=== PATIENT | male | born 1975 | race Two or more races ===

== ENCOUNTER 2021-03-20 15:20 | Observation (INO) | payer OTHER ==
[~2021-03-20] VITALS: Ht 182.9 cm; Wt 131.7 kg
[2021-03-20 16:05] VITALS: BP 143/86
[2021-03-20] MEDS ORDERED: ZOLPIDEM 5 MG TABLET. PO PRN (16:45)
[2021-03-20] MEDS ORDERED: ACETAMINOPHEN 325 MG TABLET PO PRN (16:45)
[2021-03-20] MEDS ORDERED: NITROGLYCERIN SUBLINGUAL 0.4 MG BOTTLE OF 25. SL PRN (16:45)
[2021-03-20] MEDS ORDERED: MAG HYDROX/AL HYDROX/SIMETH 30 ML ORAL.SUSP PO PRN (16:45)
--- NOTE | 2021-03-20 17:23 | EKG ---
[address] [address] Test Date: 2021-03-20 Test Time: 17:15:53 Pat Name: NADJA BAEZ Department: Room: 121 A Gender: M Hospital Account Manager: : 1975 Requested By: JOEL DODD Order Number: [id number] Reading MD: Measurements Intervals [place] Rate: 68 P: 41 ME: 160 QRS: -13 QRSD: 98 T: -1 QT: 392 QTc: 422 Interpretive Statements SINUS RHYTHM LEFTWARD AXIS NO SPECIFIC ECG ABNORMALITIES RI6.01 No previous ECG available for comparison
[2021-03-20 17:30] LABS: BASO % 1 % (0-3); EOS # 0.1 x10^3/uL (0.0-0.7); EOS % 2 % (0-3); HEMATOCRIT 43.5 % (39.0-53.0); HEMOGLOBIN 14.4 g/dL (13.0-17.5); LYMPH # 1.7 x10^3/uL (1.0-4.8); LYMPH % 23 % (24-48); MEAN CORPUSCULAR HEMOGLOBIN 29 pg (25-35); MEAN CORPUSCULAR HGB CONC 33 g/dL (31-37); MEAN CORPUSCULAR VOLUME 88 fL (79-100); MONO # 0.6 x10^3/uL (0.0-1.1); MONO % 8 % (0-9); NEUT # 4.8 x10^3uL (1.8-7.7); NEUT % 66 % (31-73); PLATELET COUNT 218 x10^3/uL (140-400); RED BLOOD COUNT 4.92 x10^6/uL (4.30-5.70); RED CELL DISTRIBUTION WIDTH 14.9 % (11.5-14.5); WHITE BLOOD COUNT 7.2 x10^3/uL (4.0-11.0)
[2021-03-20 17:53] LABS: ALBUMIN 3.3 g/dL (3.4-5.0); ALBUMIN/GLOBULIN RATIO 0.8 (1.0-1.7); CALCIUM 8.6 mg/dL (8.5-10.1); CREATININE 1.2 mg/dL (0.7-1.3); GFR 64.9; POTASSIUM 3.9 mmol/L (3.5-5.1); TOTAL BILIRUBIN 0.2 mg/dL (0.2-1.0); TOTAL PROTEIN 7.3 g/dL (6.4-8.2)
[2021-03-20] MEDS: IV 1/2 NORMAL SALINE 1,000 ML IV SCH (18:14)
[2021-03-20] MEDS ORDERED: PANT40TA6 PO (19:13)
--- NOTE | 2021-03-20 19:38 | RAD ---
EXAMINATION: Chest radiograph. VIEWS: 2 views COMPARISON: None INDICATION:46 years, Male, chest pain. FINDINGS: Normal cardiomediastinal silhouette. No focal consolidation. No pleural effusion or pneumothorax. No acute osseous process. IMPRESSION: No acute cardiopulmonary process. Electronically signed by: Yumiko Yip MD (03/20/2021 7:36 PM) [facility]
[2021-03-20 19:48] VITALS: BP 130/70
[2021-03-20 23:50] VITALS: BP 130/77
[2021-03-21] MEDS: IV 1/2 NORMAL SALINE 1,000 ML IV SCH (02:50)
[2021-03-21 06:07] VITALS: BP 117/71
[2021-03-21] MEDS ORDERED: PANTOPRAZOLE 40 MG TABLET. PO SCH ×2 (07:30)
[2021-03-21 10:47] VITALS: BP 162/88
[2021-03-21] MEDS ORDERED: NITR0.4T24 SL (12:02)
[2021-03-21] MEDS ORDERED: ASPI-889 PO (12:02)
--- NOTE | 2021-03-21 13:35 | NUR ---
Discharge note Patient and spouse read discharge instructions, all questions answered in full. Patient given discharge packet. Invasive line discontinued without difficulty. Patient ambulated with spouse out of building.
--- NOTE | 2021-03-21 21:10 | DS ---
DATE OF DISCHARGE: 03/21/2021 FINAL DIAGNOSIS: Had a chest pain, probable angina. The patient will be discharged as indicated for followup with Cardiology. KALEIGH/GRACE DR: Duc TID: [id number]
--- NOTE | 2021-03-21 21:10 | DS ---
DATE OF DISCHARGE: 03/21/2021 HOSPITAL COURSE: A 46-year-old male who has been having off and on chest pain in his left upper chest wall for the last six months. Nothing seems to make it better or worse. The patient has noted it with activity. We will go ahead, he was admitted to the hospital for rule out [place] protocol. His CBC was perfectly normal. Chemistries showed cardiac enzymes were all within range. Sodium, potassium, 143, 3.9, BUN and creatinine 15 and 1.2. Liver enzymes were normal. D-dimer was normal. The patient's EKG in the hospital showed sinus rhythm with some leftward axis deviation, otherwise unremarkable there. The patient was discharged home, did not want to wait for the electro optics engineer to see him. He will be discharged home and scheduled for a stress test as an outpatient. KATHIA DR: Duc TID: [id number]
[2021-03-22] MEDS ORDERED: PANTOPRAZOLE 40 MG TABLET. PO SCH (07:00)
--- NOTE | 2021-03-24 20:15 | DS ---
DATE OF DISCHARGE: 03/21/2021 HOSPITAL COURSE: A 46-year-old gentleman has been having off and on pain for the last several months, sometimes at rest. The patient has some risk factors of obesity and family history of heart disease. As a result of this, the patient was admitted to the hospital for rule out [place] protocol. His past medical history includes sleep apnea ____ CPAP, gastrointestinal disorders. Vaccinations are up to date. He has no known allergies. The patient otherwise made good progress. Cardiac enzymes were negative. Cardiology had been consulted, but the patient wanted to be discharged before they were able to see him. Otherwise, outside of moderate protein malnutrition, the patient's cardiac enzymes were unremarkable and the patient's electrocardiogram here anyway demonstrated a sinus rhythm. IMPRESSION: Chest pain, unknown etiology, possible angina. We will go ahead and continue to monitor the patient accordingly. The patient will be followed up as an outpatient and make further evaluation on him as indicated. BRITTANY DR: Duc TID: [id number]
== END 2021-03-21 13:14 | disposition home or self-care (01) ==
LOC: INTOOBSV 15:43 → 1 SOUTH 15:43
PROVIDERS: ADMIT Family Medicine; ATTEND Family Medicine
DX: R07.89 Other chest pain (principal); Z82.49 Family history of ischemic heart disease and other diseases of the circulatory system; Z79.899 Other long term (current) drug therapy
CPT/HCPCS: 36415; 71046; 80053; 80061; 82550; 84484; 85025; 85379; 93005; 96360; 96361; G0378; G0379; J7030

== ENCOUNTER 2021-08-01 19:26 | Emergency (ER) | payer OTHER ==
[~2021-08-01] VITALS: Ht 182.9 cm; Wt 114.4 kg
[~2021-08-01 19:26] MED LIST: ASPI-889 PO; NITR0.4T24 SL; PANT40TA6 PO
[2021-08-01 19:43] VITALS: BP 134/78
--- NOTE | 2021-08-01 19:49 | PHYS DOC ---
Adult General Chief Complaint Chief Complaint: ALLERGIC REACTION HPI HPI Patient is an otherwise healthy 46-year-old male who presents with concern for allergic reaction. States he got some new clothes from [employer], and about 20 minutes after trying them on started having some eye redness and itching, throat itching and hives on his back and abdomen. Denies any headache, pain or trouble swallowing, swollen lips or tongue, chest pain, shortness of breath, wheeze, abdominal pain, nausea, vomiting, diarrhea or lightheadedness. States he is able to sit, stand and walk without issue. States that he thinks symptoms are a little better than when they first started about an hour and a half ago. States he is not aware of any allergies outside of a possible shellfish allergy. Review of Systems Review of Systems Review of systems otherwise unremarkable except noted in HPI Allergies Allergies Allergies Coded Allergies Type Severity Reaction Last Updated Verified No Known Drug Allergies 03/20/21 No Physical Exam Physical Exam Constitutional: Well developed, well nourished, no acute distress, non-toxic appearance. [] HENT: Normocephalic, atraumatic, bilateral external ears normal, oropharynx moist, no oropharyngeal erythema or edema, no oral exudates, nose normal. [] Eyes: conjunctiva normal, no discharge. [] Neck: Normal range of motion, no tenderness, supple, no stridor. [] Cardiovascular:Heart rate regular rhythm, no murmur [] Lungs & Thorax: Bilateral breath sounds clear to auscultation [] Abdomen: Bowel sounds normal, soft, no tenderness, no masses, no pulsatile masses. [] Skin: Warm, dry, scant/minimal hives/urticaria on the back and abdomen Back: No tenderness, no CVA tenderness. [] Extremities: No tenderness, no cyanosis, no clubbing, ROM intact, no edema. [] Neurologic: Alert and oriented X 3, normal motor function, normal sensory function, no focal deficits noted. [] Psychologic: Affect normal, judgement normal, mood normal. [] EKG EKG [] Radiology/Procedures Radiology/Procedures [] Heart Score C/O Chest Pain: No Risk Factors: Risk Factors: DM, Current or recent (<one month) smoker, HTN, HLP, family history of CAD, obesity. Risk Scores: Risk Factors: DM, Current or recent (<one month) smoker, HTN, HLP, family history of CAD, obesity. Course & Med Decision Making Course & Med Decision Making Patient is a 46-year-old male who presents with concern for allergic reaction and hives Vital signs notable for tachycardia initially which resolved in the ED. Physical exam noted above. Given steroids and Pepcid. Patient took 50 mg of Benadryl just before coming to the ED. Observed in the emergency department until symptoms improved/resolved Discussed all findings with patient. Advised to follow-up as soon as possible with his primary care physician to discuss his ED visit. Advised to discard the new close that may be responsible for this reaction. Gave return precautions to the ED. Family grateful, verbalized understanding and agree with plan of discharge. [] Dragon Disclaimer Dragon Disclaimer This electronic medical record was generated, in whole or in part, using a voice recognition dictation system. Departure Departure: Impression: Primary Impression: Allergic reaction Disposition: HOME / SELF CARE / HOMELESS Condition: GOOD Referrals: JOEL DODD MD (PCP) Patient Instructions: Allergies, Generic, Allergy Skin Testing Additional Instructions: Thank you for coming into the emergency department tonight and allowing us to take care of you. Please read the attached information carefully to go back over some of the things we discussed. Please stay away from anything that you think may have triggered this such as the new clothes that she received. Please call your primary care physician to see if you can update him on your ED visit and set up a follow-up as soon as you can to discuss further evaluation and treatment. Please come back with new or concerning symptoms as we discussed JOSE ELIAS NEGRON MD Aug 01, 2021 19:49
[2021-08-01] MEDS ORDERED: FAMOTIDINE 20 MG TABLET PO ONE (20:00)
[2021-08-01] MEDS ORDERED: DEXAMETHASONE 4 MG TABLET PO ONE (20:00)
== END 2021-08-01 20:18 | disposition home or self-care (01) ==
LOC: ER 19:26
DX: T78.40XA Allergy, unspecified, initial encounter (principal); X58.XXXA Exposure to other specified factors, initial encounter
CPT/HCPCS: 99283; J8540